=== PATIENT | female | born 1965 ===

== ENCOUNTER → 2019-12-16 | Outpatient (CLI) | payer OTHER | LOC: GMAM 15:30 | PROVIDERS: ATTEND Family Medicine | DX: M06.9 Rheumatoid arthritis, unspecified (principal); I10 Essential (primary) hypertension; E78.2 Mixed hyperlipidemia ==

== ENCOUNTER 2020-02-21 09:06 | Emergency (ER) | payer MEDICARE, MEDICAID ==
[2020-02-21] MEDS ORDERED: SODIUM CHLORIDE 0.9% 1000ML 1,000 ML IVS ONE (09:26)
--- NOTE | 2020-02-21 09:42 | ED.PDOC ---
History of Present Illness - General Chief Complaint: General Stated Complaint: Low BP and weakness Time Seen by Provider: 02/21/20 09:17 Source: patient, RN notes reviewed, Vital Signs reviewed, EMS Exam Limitations: no limitations - History of Present Illness Initial Comments: Patient is a 54-year-old female with past medical history of hypertension and COPD who presents the ED for low blood pressure this morning. States she checked her blood pressure at 730 this morning after waking up and it was 92/51. States she felt weak and fatigued at the time and called EMS. Upon EMS arrival blood pressure was in the 140s and remained stable throughout transport. Patient states she feels at baseline at this time. She denies chest pain, fever, cough, shortness of breath, nausea, vomiting, diarrhea, abdominal pain or any recent illnesses. She denies any recent sick contacts or travel. Allergies/Adverse Reactions: Allergies NO KNOWN ALLERGY Allergy (Verified 02/21/20 09:34) Review of Systems - Review of Systems Constitutional: Denies: chills, fever, weakness EENTM: Denies: blurred vision, nose congestion, throat pain Respiratory: Denies: cough, short of breath Cardiology: Denies: chest pain, edema, palpitations, syncope Gastrointestinal/Abdominal: Denies: abdominal pain, diarrhea, nausea, vomiting Genitourinary: Denies: dysuria, frequency Musculoskeletal: Denies: back pain, neck pain Skin: States: no symptoms reported Neurological: Denies: headache, paresthesia Endocrine: States: no symptoms reported All other Systems: Reviewed and Negative Past Medical History (General) - Patient Medical History Hx Stroke: No Hx of COPD: Yes Hx Cardiac Disorders: No Hx Hypertension: Yes Hx Diabetes: No Surgical History: other - Vaccination History Hx Influenza Vaccination: Yes Hx Pneumococcal Vaccination: Yes - Social History Hx Tobacco Use: Yes Hx Alcohol Use: No Hx Substance Use: No Hx Substance Use Treatment: No Hx Depression: No - Anxiety - Female History Patient is a Female of Child Bearing Age (10 -59 yrs old): Yes Patient : No Family Medical History - Family History Mother Family History: No Known Physical Exam - Physical Exam General Appearance: Alert, Comfortable, No apparent distress Ears, Nose, Throat: normal pharynx Neck: non-tender, full range of motion, supple Respiratory: chest non-tender, lungs clear, normal breath sounds, no respiratory distress, no accessory muscle use Cardiovascular/Chest: normal peripheral pulses, regular rate, rhythm, no murmur Gastrointestinal/Abdominal: non tender, soft, no pulsatile mass Back Exam: no CVA tenderness, no vertebral tenderness Extremity: non-tender, normal inspection, no pedal edema Neurologic: grease remover II-XII nml as tested, no motor/sensory deficits, alert, normal mood/affect, oriented x 3 Skin Exam: normal color Progress - Progress Progress: 02/21/20 09:44 Differential diagnosis includes but is not limited to hypotension, sepsis, UTI, acute coronary syndrome, arrhythmia, dehydration 02/21/20 10:41 Patient presents with an episode of low blood pressure this morning after waking up. During route with EMS and throughout ED stay blood pressure has been stable. She denies any chest pain. Has felt at baseline during ED evaluation. Labs, imaging and vital signs are reassuring. Patient feels comfortable going home and will follow up with her PCP in 1 to 2 days for recheck. Strict return precautions given. - Results/Orders Results/Orders: EKG--NSR, rate 63, nml intervals, no ST abnormality Chest x-ray Normal chest x-ray 02/21/20 09:30 EKG .ONCE Laboratory Results - last 24 hr 02/21/20 02/21/20 02/21/20 09:37 09:37 09:37 WBC 6.5 RBC 3.96 L Hgb 12.7 Hct 36.9 MCV 93.2 MCH 32.2 H MCHC 34.5 RDW 13.7 Plt Count 382 MPV 8.2 Absolute Neuts (auto) 3.30 Absolute Lymphs (auto) 2.30 Absolute Monos (auto) 0.70 Absolute Eos (auto) 0.20 Absolute Basos (auto) 0.10 Neutrophils % 50.3 Lymphocytes % 35.2 Monocytes % 10.2 H Eosinophils % 2.6 Basophils % 1.7 Sodium 136 Potassium 4.3 Chloride 100 L Carbon Dioxide 27 Anion Gap 13.3 BUN 15 Creatinine 0.85 BUN/Creatinine Ratio 17.6 Random Glucose 78 Serum Osmolality 271.7 L Calcium 9.0 Total Bilirubin 0.3 AST 14 ALT 15 Alkaline Phosphatase 71 Troponin I < 0.02 Serum Total Protein 7.6 Albumin 4.2 Globulin 3.4 Albumin/Globulin Ratio 1.2 Urine Color Urine Appearance Urine pH Ur Specific [place] Urine Protein Urine Glucose (UA) Urine Ketones Urine Blood Urine Nitrite Urine Bilirubin Urine Urobilinogen Ur Leukocyte Esterase Urine RBC Urine WBC Ur Epithelial Cells Urine Bacteria 02/21/20 10:25 WBC RBC Hgb Hct MCV MCH MCHC RDW Plt Count MPV Absolute Neuts (auto) Absolute Lymphs (auto) Absolute Monos (auto) Absolute Eos (auto) Absolute Basos (auto) Neutrophils % Lymphocytes % Monocytes % Eosinophils % Basophils % Sodium Potassium Chloride Carbon Dioxide Anion Gap BUN Creatinine BUN/Creatinine Ratio Random Glucose Serum Osmolality Calcium Total Bilirubin AST ALT Alkaline Phosphatase Troponin I Serum Total Protein Albumin Globulin Albumin/Globulin Ratio Urine Color Yellow Urine Appearance Clear Urine pH 7.0 Ur Specific [place] 1.020 Urine Protein Negative Urine Glucose (UA) Negative Urine Ketones Negative Urine Blood Negative Urine Nitrite Negative Urine Bilirubin Negative Urine Urobilinogen 0.2 Ur Leukocyte Esterase Negative Urine RBC 0 Urine WBC 0 Ur Epithelial Cells 0 Urine Bacteria 0 Departure - Departure Clinical Impression: Generalized weakness, Essential hypertension, Transient hypotension Time of Disposition: 10:40 Disposition: Discharge to Home or Self Care Condition: Good Departure Forms: ED Discharge - Pt. Copy, Patient Portal Self Enrollment Instructions: High Blood Pressure (DC) Diet: resume usual diet Activity: increase activity as tolerated Referrals: UNKNOWN,PHYSICIAN [Physician - Staff] - 1-2 Weeks
--- NOTE | 2020-02-21 10:15 | RAD ---
EXAM: Chest,1 View CLINICAL INDICATION: Hypotension COMPARISON: There is no previous study for comparison. FINDINGS: A single view of the chest was obtained. The heart size is normal. The pulmonary vascularity is unremarkable. The lungs are clear. There is no consolidation, infiltrate, pleural effusion, or pneumothorax. IMPRESSION: Normal chest radiograph. Electronically signed by: Hilton Velasquez MD 02/21/2020 10:14 AM CDT
[2020-02-21 11:29] VITALS: O2SAT 97
[2020-02-21 12:01] VITALS: BP 102/60; TEMP 98.1
== END 2020-02-21 11:50 | disposition home or self-care (01) ==
LOC: ER 09:06
DX: R53.1 Weakness (principal); I95.9 Hypotension, unspecified; I10 Essential (primary) hypertension; J44.9 Chronic obstructive pulmonary disease, unspecified; Z87.891 Personal history of nicotine dependence
CPT/HCPCS: 36415; 71045; 80053; 81001; 84484; 85025; 93005; J7030

== ENCOUNTER 2020-02-22 16:28 | Emergency (ER) | payer MEDICARE, MEDICAID ==
[2020-02-22] MEDS ORDERED: ONDANSETRON ODT 8 MG TAB SL ONE (16:36)
[2020-02-22] MEDS ORDERED: SUCRALFATE 1 GM/10 ML 1 GM UD PO ONE (16:36)
--- NOTE | 2020-02-22 19:16 | CT ---
EXAM DESCRIPTION: Abdomen/Pelvis w/Contrast CLINICAL HISTORY: 54 years Female rt sided abd pain COMPARISON: None TECHNIQUE: Images were obtained in axial, sagittal, and coronal planes. Intravenous contrast was administered. This exam was performed according to our departmental dose-optimization program which includes use of Automated Exposure Control, adjustment of the mA and/or kV according to patient size and/or use of iterative reconstruction technique. FINDINGS: No abnormality involving the liver, spleen, pancreas, gallbladder, and adrenal glands bilaterally. Appendix within normal limits. No bowel obstruction, perforation, or inflammation. No obstructing renal calcifications bilaterally. No hydronephrosis bilaterally. Unremarkable bladder. No dilatation abdominal aorta. Unremarkable portal vein. No adenopathy or abnormal fluid collections seen. No abnormality lower lungs bilaterally. No acute osseous abnormality. Mild degenerative change thoracolumbar spine. Diffuse bulging L5-S1 intervertebral disc with no significant narrowing of spinal canal. IMPRESSION: No acute intra-abdominal abnormality. Electronically signed by: Caridad Wiggins MD 02/22/2020 7:15 PM CDT
[2020-02-22] MEDS ORDERED: MAGNESIUM HYDROXIDE 30 ML UD PO ONE (20:04)
--- NOTE | 2020-02-22 20:07 | ED.PDOC ---
History of Present Illness - General Chief Complaint: GI Problem Stated Complaint: midepigastric pain, vomiting Time Seen by Provider: 02/22/20 16:34 Source: patient Exam Limitations: no limitations - History of Present Illness Initial Comments: The patient is a 54-year-old female presented emergency room secondary to a report of abdominal pain. Abdominal pain is diffusely on the right side. No rebound or peritoneal signs. The patient does have chronic constipation issues. She is also concerned about her blood pressure being low however upon arrival but systolic is around 150. No fevers. No sore throat. No shortness of breath. No syncope or near syncope. No chest pain. Again no diarrhea, she does have constipation. The patient does take numerous medications. Once the patient is left alone she quickly falls asleep. Timing/Duration: 1-3 hours Severity: moderate Improving Factors: nothing Worsening Factors: nothing Associated Symptoms: malaise, nausea/vomiting Allergies/Adverse Reactions: Allergies NO KNOWN ALLERGY Allergy (Verified 02/21/20 09:34) Review of Systems - Review of Systems Constitutional: States: malaise EENTM: States: no symptoms reported Respiratory: States: no symptoms reported Cardiology: States: no symptoms reported Gastrointestinal/Abdominal: States: abdominal pain, constipation Genitourinary: States: no symptoms reported Musculoskeletal: States: no symptoms reported Skin: States: no symptoms reported Neurological: States: other - Drowsy Endocrine: States: no symptoms reported All other Systems: No Change from Baseline Past Medical History (General) - Patient Medical History Hx Stroke: No Hx of COPD: Yes Hx Cardiac Disorders: No Hx Hypertension: Yes Hx Diabetes: No - Vaccination History Hx Influenza Vaccination: Yes Hx Pneumococcal Vaccination: Yes - Social History Hx Tobacco Use: Yes Hx Alcohol Use: No Hx Substance Use: No Hx Substance Use Treatment: No Hx Depression: No - Anxiety - Female History Patient : No Family Medical History - Family History Mother Family History: No Known Physical Exam - Physical Exam General Appearance: Alert - But she does quickly fall asleep, No apparent distress, Obese Eye Exam: bilateral normal Ears, Nose, Throat: hearing grossly normal, normal pharynx Neck: non-tender, supple Respiratory: lungs clear, normal breath sounds, no respiratory distress, no accessory muscle use Cardiovascular/Chest: normal peripheral pulses, regular rate, rhythm, no edema Peripheral Pulses: radial,right: 2+, radial,left: 2+ Gastrointestinal/Abdominal: soft, other - Mild vague right-sided abdominal disc omfort to palpation. No true guarding or rebound or peritoneal signs. No definite palpable mass. Rectal Exam: deferred Back Exam: no CVA tenderness, no vertebral tenderness Extremity: normal range of motion, no pedal edema, no calf tenderness, normal capillary refill Neurologic: circular knitter helper II-XII nml as tested, alert, oriented x 3, other - The patient is fairly drowsy. Skin Exam: normal color Comments: Vital Signs - 24 hr 02/22/20 02/22/20 16:34 19:50 Temperature 98.1 F Pulse Rate [ 65 62 right brachial] Respiratory 20 16 Rate Blood Pressure 157/70 [left brachial] O2 Sat by Pulse 97 94 L Oximetry Repeat blood pressure with the patient lying flat is 112/76 Progress - Progress Progress: 02/22/20 20:08 The patient is a 54-year-old female presents emergency room secondary to abdominal pain. I believe this is likely due to constipation in the descending colon. No other significant pathology has been found. The patient is going to be given a dose of milk of magnesia here tonight. She does need to keep her self well-hydrated. Additionally the patient appears to be mildly overmedicated as far as her sedative type medications go. She needs to talk with her primary care doctor about slightly reducing these as she does need to be more functional during the daytime. I do want her to follow-up with her primary care doctor later this coming week. ER warnings are given for any worsening. The patient does need to lie flat with her arm extended when she takes her blood pressures in order to get accurate blood pressures. [email or web address] [phone] - Results/Orders Results/Orders: CT scan abdomen pelvis shows no acute pathology. She does have a significant amount of stool buildup on the right side of her abdomen. Laboratory Tests 02/22/20 02/22/20 02/22/20 16:56 16:56 16:56 WBC 6.4 RBC 3.68 L Hgb 11.8 L Hct 34.3 L MCV 93.2 MCH 32.2 H MCHC 34.5 RDW 13.7 Plt Count 343 MPV 8.1 Absolute Neuts (auto) 3.10 Absolute Lymphs (auto) 2.30 Absolute Monos (auto) 0.80 Absolute Eos (auto) 0.10 Absolute Basos (auto) 0.10 Neutrophils % 48.1 Lymphocytes % 36.8 Monocytes % 12.2 H Eosinophils % 2.0 Basophils % 0.9 Sodium 138 Potassium 4.5 Chloride 104 Carbon Dioxide 27 Anion Gap 11.5 L BUN 10 Creatinine 0.85 BUN/Creatinine Ratio 11.8 Random Glucose 114 H D Serum Osmolality 275.6 Calcium 8.7 Magnesium 2.0 Total Bilirubin 0.3 AST 14 ALT 13 Alkaline Phosphatase 62 Creatine Kinase 47 CK-MB (CK-2) 0.6 CK-MB (CK-2) % Not Reportable Troponin I < 0.02 Serum Total Protein 6.7 Albumin 3.8 Globulin 2.9 Albumin/Globulin Ratio 1.3 Amylase 19 L Lipase 28 Serum HCG, Qual Negative Departure - Departure Clinical Impression: Medication adverse effect Qualifiers: Encounter type: initial encounter Qualified Code(s): T50.905A - Adverse effect of unspecified drugs, medicaments and biological substances, initial encounter Constipation Qualifiers: Constipation type: drug induced constipation Qualified Code(s): K59.03 - Drug induced constipation Disposition: Discharge to Home or Self Care Condition: Fair Departure Forms: ED Discharge - Pt. Copy, Patient Portal Self Enrollment Instructions: DI for Constipation Diet: bland diet - High-fiber low-fat Activity: increase activity as tolerated Referrals: Luís Dhillon MD [Primary Care Provider] - 1-5 Days Additional Instructions: The patient is a 54-year-old female presents emergency room secondary to abdominal pain. I believe this is likely due to constipation in the descending colon. No other significant pathology has been found. The patient is going to be given a dose of milk of magnesia here tonight. She does need to keep her self well-hydrated. Additionally the patient appears to be mildly overmedicated as far as her sedative type medications go. She needs to talk with her primary care doctor about slightly reducing these as she does need to be more functional during the daytime. I do want her to follow-up with her primary care doctor later this coming week. ER warnings are given for any worsening. The patient does need to lie flat with her arm extended when she takes her blood pressures in order to get accurate blood pressures.
[2020-02-22 20:31] VITALS: BP 98/68; TEMP 97.9; O2SAT 95
== END 2020-02-22 20:32 | disposition home or self-care (01) ==
LOC: ER 16:28
DX: T50.905A Adverse effect of unspecified drugs, medicaments and biological substances, initial encounter (principal); K59.03 Drug induced constipation; R11.2 Nausea with vomiting, unspecified; R10.9 Unspecified abdominal pain; Y92.9 Unspecified place or not applicable

== ENCOUNTER → 2020-10-15 | Outpatient (CLI) | payer MEDICARE | LOC: GMAM 13:41 | PROVIDERS: ATTEND Family Medicine | DX: M06.9 Rheumatoid arthritis, unspecified (principal) ==